=== PATIENT | male | born 1995 | race Two or more races ===

== ENCOUNTER 2018-02-14 00:13 | Emergency (ER) | payer OTHER ==
[~2018-02-14] VITALS: Ht 170.2 cm; Wt 79.0 kg
[2018-02-14 00:20] VITALS: BP 132/72
[2018-02-14] MEDS ORDERED: FEXO1TAB31 PO (00:32)
[2018-02-14] MEDS ORDERED: predniSONE 10 MG TABLET ONE (00:34)
[2018-02-14] MEDS ORDERED: predniSONE 10 MG TABLET PO ONE (00:45)
--- NOTE | 2018-02-14 05:22 | ED.ADGEN ---
Past History Past Medical History: No Pertinent History, Other Past Surgical History: Appendectomy, Other Alcohol Use: Occasionally Drug Use: None Adult General Chief Complaint Chief Complaint Sore throat, cough HPI HPI Patient is a 7-year-old male presents with sore throat and cough since yesterday. No fever chills, nausea vomiting or sweats. No chest pain, wheezing, shortness breath or pelvic dictations. Patient has been using cough drops. No other pain medication or anti-inflammatory sticking prior to ED arrival.] Review of Systems Review of Systems View symptoms as per history of present illness. All other review symptoms are negative. All other systems were reviewed and found to be within normal limits, except as documented in this note. Current Medications Current Medications Current Medications Medications (Trade) Dose Ordered Sig/Omer Start Time Stop Time Status Last Admin Dose Admin Prednisone (Prednisone) 10 mg STK-MED ONCE 02/14/18 00:34 02/14/18 00:48 DC Allergies Allergies Allergies Coded Allergies Type Severity Reaction Last Updated Verified No Known Drug Allergies 02/14/18 No Physical Exam Physical Exam Constitutional: Well developed, well nourished, no acute distress, non-toxic appearance. [] HENT: Normocephalic, atraumatic, bilateral external ears normal, oropharynx moist, no uvular, peritonsillar or swelling or exudate, no oral exudates, nose normal. [] Eyes: PERRLA, EOMI, conjunctiva normal, no discharge. [] Neck: Normal range of motion, no tenderness, supple, no stridor. [] Cardiovascular:Heart rate regular rhythm, no murmur [] Lungs & Thorax: Bilateral breath sounds clear to auscultation [] Abdomen: Bowel sounds normal, soft, no tenderness, no masses, no pulsatile masses. [] Skin: Warm, dry, no erythema, no rash. [] Back: No tenderness, no CVA tenderness. [] Extremities: No tenderness, no cyanosis, no clubbing, ROM intact, no edema. [] Neurologic: Alert and oriented X 3, normal motor function, normal sensory function, no focal deficits noted. [] Psychologic: Affect normal, judgement normal, mood normal. [] Current Patient Data Vital Signs Vital Signs Date Time Temp Pulse Resp B/P (MAP) Pulse Ox O2 Delivery O2 Flow Rate FiO2 10/20/18 00:20 98.0 70 20 98 Room Air EKG EKG [] Radiology/Procedures Radiology/Procedures [] Course & Med Decision Making Course & Med Decision Making Pertinent Labs and Imaging studies reviewed. (See chart for details) [Symptoms most consistent with there are oral pharyngitis. Recommend supportive care with PCP follow-up.] Final Impression Final Impression [#1 acute viral pharyngitis] Wallace Disclaimer Dragon Disclaimer This electronic medical record was generated, in whole or in part, using a voice recognition dictation system. BOSTON ESPINOSA DO Feb 14, 2018 05:22
== END 2018-02-14 00:46 | disposition home or self-care (01) ==
LOC: ER 00:13
DX: J02.8 Acute pharyngitis due to other specified organisms (principal); B97.89 Other viral agents as the cause of diseases classified elsewhere
CPT/HCPCS: 99282; J7512